=== PATIENT | female | born 1985 | race African-American/Black ===

== ENCOUNTER 2017-11-28 06:00 | Emergency (ER) | payer OTHER ==
[~2017-11-28] VITALS: Ht 167.6 cm; Wt 99.8 kg
[2017-11-28] MEDS ORDERED: HYDROcodone-ACET 10/325MG TAB PO ONE (08:00)
[2017-11-28 08:18] VITALS: BP 110/63
== END 2017-11-28 08:07 | disposition home or self-care (01) ==
LOC: ER 06:00
DX: I88.9 Nonspecific lymphadenitis, unspecified (principal); F17.210 Nicotine dependence, cigarettes, uncomplicated; F12.10 Cannabis abuse, uncomplicated
CPT/HCPCS: 70490; 81025

== ENCOUNTER 2019-04-24 07:41 | Emergency (ER) | payer MEDICAID, OTHER ==
[~2019-04-24] VITALS: Ht 167.6 cm; Wt 100.7 kg
[2019-04-24 08:02] VITALS: BP 142/89
== END 2019-04-24 09:08 | disposition home or self-care (01) ==
LOC: ER 07:41
DX: J06.9 Acute upper respiratory infection, unspecified (principal); F17.210 Nicotine dependence, cigarettes, uncomplicated; F12.10 Cannabis abuse, uncomplicated
CPT/HCPCS: 71046

== ENCOUNTER 2023-03-27 05:01 | Emergency (ER) | payer MEDICAID ==
[~2023-03-27] VITALS: Ht 167.6 cm; Wt 117.7 kg
[2023-03-27 05:11] VITALS: BP 137/91; PULSE 88; RESP 16; TEMP 98.1; O2SAT 99
[2023-03-27] MEDS ORDERED: ACETAMINOPHEN 500 MG TAB PO ONE (07:30)
[2023-03-27] MEDS ORDERED: cefTRIAXone SOD 1,000 MG VL IM ONE (07:45)
[2023-03-27] MEDS ORDERED: KETOROLAC TROMETH 30 MG/ML 1ML VIAL IM ONE (08:00)
[2023-03-27] MEDS ORDERED: AUG875T PO (08:10)
== END 2023-03-27 08:30 | disposition home or self-care (01) ==
LOC: ER 05:01
DX: J06.9 Acute upper respiratory infection, unspecified (principal); H92.01 Otalgia, right ear; F17.210 Nicotine dependence, cigarettes, uncomplicated; F15.90 Other stimulant use, unspecified, uncomplicated
CPT/HCPCS: 81025; 96372; 99283; J0696

== ENCOUNTER 2023-05-25 10:08 | Emergency (ER) | payer MEDICAID ==
[~2023-05-25] VITALS: Ht 167.6 cm; Wt 113.6 kg
[~2023-05-25 10:08] MED LIST: AUG875T PO
[2023-05-25 11:38] VITALS: BP 117/73; PULSE 82; RESP 18; TEMP 97.2; O2SAT 98
== END 2023-05-25 12:19 | disposition left against medical advice (07) ==
LOC: ER 10:08
DX: K08.89 Other specified disorders of teeth and supporting structures (principal); R22.0 Localized swelling, mass and lump, head; Z53.21 Procedure and treatment not carried out due to patient leaving prior to being seen by health care provider